=== PATIENT | female | born 1940 | race Caucasian/White ===

== ENCOUNTER 2016-08-12 15:15 | Inpatient (IN) | payer MEDICARE ==
[~2016-08-12] VITALS: Ht 154.9 cm; Wt 54.7 kg
[~2016-08-12 15:15] MED LIST: AMIO0.1T PO; ASPI81TA85 PO; CALC-196 PO; DULC100C PO; HYDR200T3 PO; IRON28TA PO; LUTE6CAP2 PO; METO25TAB PO; MULT1TAB8 PO; PYRI100T2 PO; VITA400T15 PO; VITA500C24 PO; ZOFR8TAB PO
[2016-08-12] MEDS ORDERED: XARE15TA (15:27)
[2016-08-12] MEDS ORDERED: DULO1CAP2 (15:27)
[2016-08-12] MEDS ORDERED: REST0.05 (15:27)
[2016-08-12] MEDS ORDERED: LEVO50TA5 (15:27)
[2016-08-12] MEDS ORDERED: ALIG4CAP (15:27)
[2016-08-12] MEDS ORDERED: GABA-279 (15:27)
[2016-08-12 16:53] LABS: BASO % 0.1 % (0.0-1.0); EOS % 0.2 % (0.0-3.0); LARGE UNSTAINED CELL # 0.2 K/mm3 (0.0-0.4); LARGE UNSTAINED CELL % 1.8 % (0.0-4.0); LYMPH # 0.4 K/mm3 (1.5-4.5); LYMPH % 3.3 % (24.0-44.0); MEAN CORPUSCULAR HEMOGLOBIN 29.6 pg (27.0-33.0); MEAN CORPUSCULAR HGB CONC 29.2 g/dl (32.0-36.5); MEAN CORPUSCULAR VOLUME 101.3 fl (80.0-96.0); MONO # 0.5 K/mm3 (0.0-0.8); MONO % 4.9 % (0.0-5.0); NEUTROPHILS # 9.9 K/mm3 (1.8-7.7); NEUTROPHILS % 89.8 % (36.0-66.0); PLATELET COUNT, AUTOMATED 238 k/mm3 (150-450); RED CELL DISTRIBUTION WIDTH 20.4 % (11.5-14.5)
[2016-08-12] MEDS: NS 1,000 ML IV SCH (16:56)
[2016-08-12 16:59] LABS: ALBUMIN/GLOBULIN RATIO 0.56 (1.00-1.93); ALKALINE PHOSPHATASE 333 U/L (45-117); ALT/SGPT 60 U/L (12-78); ANION GAP 7 MEQ/L (8-16); AST/SGOT 65 U/L (15-37); BILIRUBIN,DIRECT 1.8 MG/DL (0.0-0.2); BILIRUBIN,TOTAL 2.1 MG/DL (0.2-1.0); BLOOD UREA NITROGEN 21 MG/DL (7-18); CALCIUM LEVEL 7.4 MG/DL (8.8-10.2); CARBON DIOXIDE LEVEL 23 MEQ/L (21-32); CHLORIDE LEVEL 108 MEQ/L (98-107); CREATININE FOR GFR 0.85 MG/DL (0.55-1.02); GLOMERULAR FILTRATION RATE > 60.0 (>39); GLUCOSE, FASTING 127 MG/DL (83-110); POTASSIUM SERUM 3.5 MEQ/L (3.5-5.1); SODIUM LEVEL 138 MEQ/L (136-145); TOTAL PROTEIN 5.6 GM/DL (6.4-8.2)
--- NOTE | 2016-08-12 18:21 | REP ---
CHEST, TWO VIEWS: REASON: Abdominal pain. COMPARISON: 01/19/2015 The technique utilized in obtaining the radiograph has magnified the cardiac silhouette and accentuated the interstitial markings. Basilar opacities seen previously have resolved. Dural chamber bipolar pace maker device is stable. Central venous catheter tip in the superior vena cava. No abnormal patchy parenchymal opacities or pleural effusions have developed. There is no change in the osseous structures. IMPRESSION: Chronic changes as described above without evidence of acute cardiopulmonary disease. It should be stated that the lateral view shows a slight haziness in the posterior sulcus which may be artifactual or potentially represent a small pleural effusion. The exam is markedly limited. Signed by Philip Ortiz DO 08/12/2016 06:25 P
--- NOTE | 2016-08-12 18:29 | REP ---
CT ABDOMEN: REASON FOR EXAM: Abdominal cramping with bloating. COMPARISON: 03/15/2015 There is a moderate sized possibly loculated left pleural effusion. There is a smaller possibly partially loculated right pleural effusion. There are chronic fibrotic changes seen in the lung bases. Certainly, concomitant basilar pneumonia/atelectasis can not be ruled out. There is ascites which is moderate to large. There is a new low density lesion in the anterior segment of the right lobe of the liver which measures 1.7 cm. This can not be further assessed without intravenous contrast. The patient is status-post cholecystectomy. A limited evaluation of the pancreas shows no significant change from the prior exam. The limited evaluation of the adrenal glands again show low density adrenal gland thickening status quo. Limited evaluation of the kidneys show a single nonobstructing left nephrolith status quo and there is evidence of a right extrarenal pelvis status quo. The bowel loops are seen floating within the ascitic fluid. There appear to be multiple gas filled mildly dilated small bowel loops in the abdomen. There is calcific atherosclerotic change in the abdominal aorta status quo. The spleen is unchanged. There is a large amount of ascitic fluid in the pelvis. There are pelvic calcifications status quo seen in the left adnexa. There is a difficult to evaluate potential 5.2 x 3.4 x 4.6 cm sized cystic appearing mass lesion. This represents a change from the prior exam. The pelvic bowel loops appear to be within normal limits. The osseous structures show chronic bony demineralization and degenerative changes. There is a new area of abnormal increased density in the first sacral segment extending into the left sacral alar suspicious for blastic metastatic disease. This blastic appearing lesion has increased in sized from the prior exam. IMPRESSION:1. Abnormal lung field findings as described above. 2. Moderate to large amount of ascites. 3. New low density hepatic lesion as described above possibly representing a metastatic deposit. 4. Possible cystic mass in the left adnexa versus a loop of bowel. I note on the patient's history sheet that she has had hysterectomy, however, I am uncertain if there has been ovarian preservation. This finding needs to be correlated clinically and followed up to ensure resolution. 5. There appear to be blastic skeletal lesions as described above which need clinical correlation and followup. 6. Other findings as described above. Signed by Philip Ortiz DO 08/12/2016 06:33 P
--- NOTE | 2016-08-12 18:30 | REP ---
DUPLEX LOWER EXTREMITIES: REASON: Bilateral lower extremity pain and swelling. TECHNIQUE: Multiple ultrasonographic images of the deep venous structures of the bilateral thighs were obtained from the common femoral vein to the popliteal vein along with Doppler interrogation and color flow Doppler images. FINDINGS: There is no abnormal echogenic material seen within any of the visualized deep venous structures that would suggest acute thrombosis. Coaptation is unremarkable throughout. Doppler interrogation shows an expected response to respiratory variability and augmentation. The color flow images show what appears to be a normal vascular pattern throughout. IMPRESSION: There is no ultrasonographic evidence of deep venous thrombosis involving any of the visualized deep venous structures of the bilateral thighs, as described above. Signed by Philip Ortiz DO 08/12/2016 06:33 P
[2016-08-12 20:22] LABS: INR 1.5
[2016-08-12] MEDS ORDERED: ALIG4CAP PO (20:24)
[2016-08-12] MEDS ORDERED: AMIO0.1T PO (20:24)
[2016-08-12] MEDS ORDERED: COLA100C3 PO (20:28)
[2016-08-12] MEDS ORDERED: VITA50003 PO (20:28)
[2016-08-12] MEDS ORDERED: VITA500T88 PO (20:28)
[2016-08-12] MEDS ORDERED: CALC-196 PO (20:28)
[2016-08-12] MEDS ORDERED: FUROSEMIDE 40 MG/4 ML VIAL (J1940) IV ONE (20:30)
[2016-08-12] MEDS ORDERED: HYDR200T3 PO (20:36)
[2016-08-12] MEDS ORDERED: METO-346 PO (20:36)
[2016-08-12] MEDS ORDERED: IRON28TA PO (20:36)
[2016-08-12] MEDS ORDERED: LUTE6TAB2 PO (20:36)
[2016-08-12] MEDS ORDERED: VITATAB11 PO (20:36)
[2016-08-12] MEDS ORDERED: XARE15TA PO (20:36)
[2016-08-12] MEDS ORDERED: TYLE500T78 PO (20:36)
[2016-08-12] MEDS ORDERED: VITMTA PO (20:36)
[2016-08-12] MEDS ORDERED: ZOFR8TAB PO (20:36)
[2016-08-12] MEDS ORDERED: REST0.05 OU (20:36)
[2016-08-12] MEDS ORDERED: ARTI99.0 OU (20:36)
[2016-08-12] MEDS ORDERED: LEVO50TA45 PO (20:36)
[2016-08-12] MEDS ORDERED: POLYVINYL ALCOHOL OPHTH SOLN 15 ML(LIQUITEARS) OU PRN (20:45)
[2016-08-12 20:57] LABS: REASON FOR REVIEW ANEMIA / RBC MORPH
[2016-08-12 21:13] LABS: FERRITIN 238 NG/ML (8-252); PERCENT SATURATION 12.7 % (13.2-37.4); TOTAL IRON BINDING CAPACITY 166 UG/DL (250-450)
[2016-08-12 21:16] LABS: DIFF SLIDE NUMBER 289; RETIC HEMOGLOBIN CONTENT CHr 30.8 PG (24-36); RETICULOCYTE ABSOLUTE ADVIA212 59 x10(9)/L (17-77)
[2016-08-12 21:20] LABS: FOLATE > 24.0 NG/ML; VITAMIN B12 LEVEL 568 PG/ML
[2016-08-12 22:00] VITALS: BP 151/71
[2016-08-13] VITALS (9 sets, daily range): BP systolic 127–159; BP diastolic 61–92
[2016-08-13] MEDS: MULTIVITAMINS/MINERALS THERAP 1 TAB PO SCH ×2 (00:27→20:55)
[2016-08-13] MEDS: METOPROLOL TART 12.5 MG PER 1/2 TAB PO SCH ×3 (00:28→20:56)
[2016-08-13] MEDS: VITAMIN B COMPLEX/VIT C CAP PO SCH ×2 (00:28→20:55)
[2016-08-13] MEDS: HYDROXYCHLOROQUINE 200 MG TAB PO SCH ×3 (00:31→20:55)
[2016-08-13] MEDS: NS 1,000 ML IV SCH ×3 (00:32→09:09)
[2016-08-13 04:09] LABS: MEAN CORPUSCULAR HEMOGLOBIN 30.5 pg (27.0-33.0); MEAN CORPUSCULAR HGB CONC 32.5 g/dl (32.0-36.5); RED CELL DISTRIBUTION WIDTH 19.4 % (11.5-14.5)
[2016-08-13 04:14] LABS: MEAN CORPUSCULAR VOLUME 96.3 fl (80.0-96.0)
[2016-08-13 04:33] LABS: ALBUMIN/GLOBULIN RATIO 0.57 (1.00-1.93); ALKALINE PHOSPHATASE 335 U/L (45-117); ALT/SGPT 55 U/L (12-78); ANION GAP 8 MEQ/L (8-16); AST/SGOT 60 U/L (15-37); BLOOD UREA NITROGEN 22 MG/DL (7-18); CARBON DIOXIDE LEVEL 23 MEQ/L (21-32); CHLORIDE LEVEL 108 MEQ/L (98-107); CREATININE FOR GFR 0.82 MG/DL (0.55-1.02); GLOMERULAR FILTRATION RATE > 60.0 (>39); GLUCOSE, FASTING 101 MG/DL (83-110); POTASSIUM SERUM 3.4 MEQ/L (3.5-5.1); SODIUM LEVEL 139 MEQ/L (136-145); TOTAL PROTEIN 5.5 GM/DL (6.4-8.2)
[2016-08-13] MEDS: LEVOTHYROXINE 0.05 MG TAB (50 MCG) PO SCH (05:07)
--- NOTE | 2016-08-13 06:40 | HPE ---
DATE OF ADMISSION: 08/12/2016 PRIMARY CARE PROVIDER: Dr. Genesis Prince ONCOLOGIST: Dr. Capps in [place]. CHIEF COMPLAINT: Worsening weakness. HISTORY OF PRESENT ILLNESS: Patient is a 76-year-old female with a past medical history significant for pancreatic cancer status post Whipple undergoing chemotherapy, hypertension, symptomatic bradycardia status post pacemaker, rheumatoid arthritis, presented to [facility] 08/12/2016 for worsening weakness. Patient stated for the past few weeks patient had worsening fatigue, muscle weakness to the extent that she cannot get out of the bed by herself. Patient also noted to have worsening abdominal pain and shortness of breath since 08/10/2016. Patient denies any associated symptoms. Patient does have a history pancreatic cancer diagnosed in 2014. Patient has received a Whipple procedure in the same year and patient is being followed with oncologist since 2014. Patient's chemotherapy has been adjusted multiple times due to the adverse effect. Previously, patient may have skin changes or neurological changes from chemotherapy. Approximately 8 days ago, patient started the first dose of her new chemotherapy. Patient was informed that her stool will turn all black with this new type of chemotherapy. Patient did notice black stool since the initiation of the chemo and patient has been taking iron supplements. Patient denies any bright red blood per rectum. Denies any blood in the urine or coughing up blood. ALLERGIES: 1. CODEINE. 2. PENICILLIN. PAST MEDICAL HISTORY: 1. Pancreatic cancer diagnosed in 2014, status post Whipple procedure, has received chemotherapy since 2014. 2. Hypertension. 3. Rheumatoid arthritis. 4. Symptomatic bradycardia, status post pacemaker placement. PAST SURGICAL HISTORY: 1. Whipple procedure in 2014. 2. Pacemaker insertion. 3. Hysterectomy. 4. Cholecystectomy. 5. Infusaport placement. SOCIAL HISTORY: Denies smoking. Denies alcohol use. Denies recreational drug use. Patient does not have confirmed wish for her code status. At this moment, she requires extra time discussing the DNR/DNI issue with the family members. REVIEW OF SYSTEMS: GENERAL: No fever. No chills. Increased fatigue, muscle weakness. HEENT: No vision changes. No auditory changes. CARDIOVASCULAR: No chest pain. No palpitations. RESPIRATORY: Increased shortness of breath. No wheeze. No cough. No sputum production. GASTROINTESTINAL (GI): Complained about worsening abdominal pain and abdominal distention. No nausea. No vomiting. No diarrhea. Patient did notice the stool is black since 8 days ago after the chemotherapy. NEUROLOGICAL: No numbness or tingling. MUSCULOSKELETAL: History of rheumatoid arthritis. Does not complain of muscle pain or joint pain. OBJECTIVE: VITAL SIGNS: Temperature is 98.5, pulse is 86, respirations 18, blood pressure is 122/66, pulse oximetry 98% on room air. GENERAL: Fatigued. Pale. No sign of acute distress. Alert and oriented times three. HEENT: Normocephalic, atraumatic. Extraocular motors grossly intact. CARDIOVASCULAR: Positive systolic murmur, positive S1, S2, regular rate. LUNGS: Clear to auscultation bilaterally. No wheezes or rhonchi. ABDOMEN: Abdominal distention but is soft. Can palpate some fluctuance. No rebound. No guarding. EXTREMITIES: No edema. No cyanosis. LABORATORY DATA: WBC is 11, hemoglobin 4.3, hematocrit 14.6, platelet count is 238. Sodium 138, potassium 3.5, chloride is 108, carbon dioxide 23, BUN 21, creatinine 0.85, GFR greater than 60, fasting glucose 127, calcium 7.4, total bilirubin 2.1 , direct bilirubin is 1.8, AST 65, ALT is 60, alkaline phosphatase 633, total CK is 26, troponin I is 0.08, BNP is 144, total protein is 5.6, albumin 2, lipase 66, TSH is 3.26. PTT is 18.2, INR 1.5. ASSESSMENT AND PLAN: 1. Severe symptomatic anemia. Patient admitted to the progressive care unit (PCU) under inpatient status. Follow hemoccult, two packed red blood cell is ordered for the patient and patient's blood transfusion consent obtained. We will follow with patient's hemoglobin and hematocrit every 6 hours. Patient does have a sign of fluid overload and we will give the patient a one time dose of intravenous (IV) Lasix and will follow with anemia workup. 2. Pancreatic cancer status post Whipple in 2014. Patient has been receiving chemotherapy since 2014. Patient is followed by the oncologist, Dr. Capps in [place]. Patient's chemo regimen has been changed continuously due to adverse effect. Patient just started a new regimen on 08/04/2016. CT abdomen and pelvis were performed in the emergency room. Patient was found to have a suspicious lesion of the right lobe of the liver measuring around 1.7 cm, and there is some blastic skeletal lesions. Those images is suspicious for metastatic spread. Finding was discussed with the patient. 3. Abdominal pain secondary to moderate two large ascites. Patient may benefit of imaging guided paracentesis tomorrow. 4. Bilateral pleural effusion. Currently, patient's breathing is able to maintain in the satisfactory respiratory range in room air. Will start diuresis. If patient has worsening of breathing or worsening of the pleural fluid, patient may benefit from the procedure, but at this moment I will start a trial of Lasix diuresis. 5. History of symptomatic bradycardia status post pacemaker. 6. History of rheumatoid arthritis. 7. Hypertension. Currently, blood pressure in the normal range. Continue to monitor. 8. Systolic congestive heart failure. Patient had an echocardiogram done in January 2017. At the time, patient had a large circumferential pericardial effusion and also noted to have mildly reduced left ventricular systolic function. Patient will be on a trial of Lasix diuresis times one, and will continue to follow. 9. Pancreatitis due to patient's active malignancy and also the severe ascites. 10. Bilirubinemia. Patient had an elevated total bilirubin and direct bilirubin. Cannot rule out due to the moderately severe ascites. 11. History of blood clot. Patient was on Xarelto due to severe asymptomatic anemia and try to rule out any acute bleeding. Xarelto will be on hold. Patient will be given JEREMIAH and sequential compression device. 11. History of prior systemic atrial fibrillation. Patient's anticoagulation will be on hold due to current severe anemia. Will continue patient amiodarone. Patient will be monitored on telemetry. 12. Deep venous thrombosis (DVT) prophylaxis. Patient will be on thromboembolism deterrents (TEDs) and sequential compression device. MTDD
[2016-08-13] MEDS ORDERED: DOCUSATE SODIUM 100 MG CAP PO SCH (09:00)
[2016-08-13] MEDS: SENOKOT S TAB PO SCH ×2 (13:09→20:55)
[2016-08-13] MEDS: MIRALAX *UNIT DOSE* 17GM PACKET PO SCH (13:09)
[2016-08-13] MEDS ORDERED: SENOKOT S TAB PO SCH ×2 (21:00)
[2016-08-14] MEDS ORDERED: ONDANSETRON 4MG/2ML VIAL (J2405) IV ONE (05:30)
[2016-08-14 05:47] LABS: MEAN CORPUSCULAR HEMOGLOBIN 31.2 pg (27.0-33.0); MEAN CORPUSCULAR HGB CONC 32.5 g/dl (32.0-36.5); MEAN CORPUSCULAR VOLUME 96.2 fl (80.0-96.0); RED CELL DISTRIBUTION WIDTH 19.3 % (11.5-14.5)
[2016-08-14 05:53] LABS: INR 1.21
[2016-08-14 06:00] VITALS: BP 132/68
[2016-08-14 06:09] LABS: ALBUMIN/GLOBULIN RATIO 0.59 (1.00-1.93); ALKALINE PHOSPHATASE 312 U/L (45-117); ALT/SGPT 51 U/L (12-78); ANION GAP 9 MEQ/L (8-16); AST/SGOT 60 U/L (15-37); BILIRUBIN,TOTAL 4.2 MG/DL (0.2-1.0); BLOOD UREA NITROGEN 20 MG/DL (7-18); CALCIUM LEVEL 7.1 MG/DL (8.8-10.2); CARBON DIOXIDE LEVEL 22 MEQ/L (21-32); CHLORIDE LEVEL 107 MEQ/L (98-107); CREATININE FOR GFR 0.78 MG/DL (0.55-1.02); GLOMERULAR FILTRATION RATE > 60.0 (>39); GLUCOSE, FASTING 122 MG/DL (83-110); POTASSIUM SERUM 3.2 MEQ/L (3.5-5.1); SODIUM LEVEL 138 MEQ/L (136-145); TOTAL PROTEIN 5.4 GM/DL (6.4-8.2)
[2016-08-14] MEDS: LEVOTHYROXINE 0.05 MG TAB (50 MCG) PO SCH (06:14)
--- NOTE | 2016-08-14 08:28 | ECGEPIP ---
Stationary ECG Study [facility] - ED Test Date: 2016-08-12 Pat Name: CAMRYN VIZCARRA Department: Room: - Gender: F Traffic Analyst: JOHNY : 1940 Requested By: SUSANA Nielsen Order Number: [id number] Reading MD: Crista Torres Measurements Intervals [place] Rate: 80 P: 64 MA: 153 QRS: -28 QRSD: 153 T: 115 QT: 407 QTc: 472 Interpretive Statements SINUS RHYTHM WITH SINUS ARRHYTHMIA LEFT BUNDLE BRANCH BLOCK PRIOR 01/19/15 PACED Electronically Signed On 08-14-2016 8:28:05 EDT by Crista Torres
[2016-08-14] MEDS: MIRALAX *UNIT DOSE* 17GM PACKET PO SCH (08:56)
[2016-08-14] MEDS: AMIODARONE 100MG TABLET (PACERONE) PO SCH (08:56)
[2016-08-14] MEDS: METOPROLOL TART 12.5 MG PER 1/2 TAB PO SCH ×2 (08:56→20:08)
[2016-08-14] MEDS: HYDROXYCHLOROQUINE 200 MG TAB PO SCH ×2 (08:56→20:08)
[2016-08-14] MEDS: SENOKOT S TAB PO SCH ×2 (08:56→20:08)
[2016-08-14] MEDS: ENOXAPARIN 40 MG/0.4 ML SYRINGE (J1650) SC SCH (08:57)
[2016-08-14] MEDS: SODIUM CHLORIDE 0.9% INJ 10 ML SYR IV SCH (08:58)
[2016-08-14 12:54] LABS: RBC PERITONEAL FLUID < 10 (<10mm3 cells/uL); TNC PERITONEAL FLUID 117 cells/uL (0-20)
[2016-08-14 12:55] LABS: BF DIFF IF INDICATED? YES (NO); PERITONEAL FL COLOR YELLOW (COLORLESS)
[2016-08-14 14:00] VITALS: BP 125/58
[2016-08-14 14:39] LABS: CC BF DIFF EXAM CYTOCENTRIFUGE
--- NOTE | 2016-08-14 15:54 | IPNPDOC ---
Subjective Date Seen The patient was seen on 08/13/16. Subjective Chief Complaint/HPI The patient is a 76-year-old female admitted with a reason for visit of Ascites; Severe Anemia. Events since last encounter Has abd distension, sense of fullness- no pain, tolerating diet with little appetite, no bm Constitutional: Denies: Chills, Fever Pulmonary: Denies: Dyspnea, Cough Cardiovascular: Denies: Chest Pain Gastrointestinal: Denies: Nausea, Vomiting, Abdominal Pain Objective Physical Examination General Exam: Positive: Alert, Cooperative, No Acute Distress ENT Exam: Positive: Mucous membr. moist/pink Chest Exam: Positive: Clear to auscultation, Diminished, Negative: Rales, Rhonchi, Wheezing Heart Exam: Positive: Rate Normal, Negative: Normal S1, Normal S2 Abdomen Exam: Positive: Normal bowel sounds, Soft, Negative: Tenderness Assessment /Plan Problems (1) Severe anemia Problem Text: s/p transfusion baseline HCT apparently around 7 Seems to be anemia of chronic disease- worse than normal, on procrit at baseline repeat h/h in am (2) Pancreatic cancer Problem Specific Plan: Consult Specialist Problem Text: Has ascites and pancreatitic cancer with metastatic disease I called Dr. Capps this afternoon to receive guidance and insight into her plan of care- awaiting return phone call as he was seeing patients when I called I doubt need for drainage of ascites based on benign physical exam Patient may benefit from procrit during her stay Will be seen by physical therapy- (3) Malignant ascites (4) Hypertension (5) Hypokalemia Problem Text: replete as needed (6) Ascites Status: Acute (7) Pancreatitis Status: Acute Problem Text: elevated lipase at presentation- resolved Plan/VTE VTE Prophylaxis Ordered?: Yes VS, I&O, 24H, Fishbone Vital Signs/I&O Vital Signs Date Time Temp Pulse Resp B/P (MAP) Pulse Ox O2 Delivery O2 Flow Rate FiO2 08/13/16 14:35 Room Air 08/13/16 14:32 98.2 78 17 134/65 (88) 96 I&O- Last 24 Hours up to 6 AM 08/13/16 06:00 Intake Total 1200 ml Output Total 1175 ml Balance 25 ml Laboratory Data 24H LABS Laboratory Tests 2 08/12/16 20:50: Differential Slide Review Report, Differential Pathologist's Review ANEMIA / RBC MORPH, Peripheral Blood Smear Path Consult PERIPHERAL SMEAR 08/13/16 03:50: Anion Gap 8, Glomerular Filtration Rate > 60.0, Blood Urea Nitrogen 22H, Creatinine 0.82, Sodium Level 139, Potassium Level 3.4L, Chloride Level 108H, Carbon Dioxide Level 23, Calcium Level 7.0L, Aspartate Amino Transf (AST/SGOT) 60H, Alanine Aminotransferase (ALT/SGPT) 55, Alkaline Phosphatase 335H, Total Bilirubin 4.0#H, Total Protein 5.5L, Albumin 2.0L, Albumin/Globulin Ratio 0.57L , Lipase 322 CBC/BMP Laboratory Tests 08/13/16 03:50 Red Blood Count 2.90 L, Mean Corpuscular Volume 96.3 #H, Mean Corpuscular Hemoglobin 30.5, Mean Corpuscular Hemoglobin Concent 32.5, Red Cell Distribution Width 19.4 H, Calcium Level 7.0 L, Aspartate Amino Transf (AST/SGOT ) 60 H, Alanine Aminotransferase (ALT/SGPT) 55, Alkaline Phosphatase 335 H, Total Bilirubin 4.0 #H, Total Protein 5.5 L, Albumin 2.0 L ELIOT WOODSON MD August 13, 2016 20:34
--- NOTE | 2016-08-14 15:58 | IPNPDOC ---
Subjective Date Seen The patient was seen on 08/14/16. Subjective Chief Complaint/HPI The patient is a 76-year-old female admitted with a reason for visit of Ascites; Severe Anemia. Events since last encounter has some more abdominal discomfort today, sense of fullness- no pain, no fever, no chills Pulmonary: Denies: Dyspnea, Cough Cardiovascular: Denies: Chest Pain Gastrointestinal: Reports: Abdominal Pain (fullness), Denies: Nausea, Vomiting Objective Physical Examination General Exam: Positive: Alert, Cooperative, No Acute Distress Eye Exam: Negative: Sclera icteric ENT Exam: Positive: Mucous membr. moist/pink Chest Exam: Positive: Clear to auscultation, Diminished, Negative: Rales, Rhonchi, Wheezing Heart Exam: Positive: Rate Normal, Negative: Normal S1, Normal S2 Abdomen Exam: Positive: Normal bowel sounds, Soft, Negative: Tenderness Assessment /Plan Problems (1) Severe anemia Problem Text: s/p transfusion hgb stable- no role for screening colonoscopy baseline HCT apparently around 7 Seems to be anemia of chronic disease- worse than normal, on procrit at baseline repeat h/h in am (2) Pancreatic cancer Problem Specific Plan: Consult Specialist Problem Text: Has ascites and pancreatitic cancer with metastatic disease I called Dr. Capps this afternoon to receive guidance and insight into her plan of care- suggests paracentesis prn for comfort, on quaternary chemotherapy Will pursue drainage of ascites based on day of week and symptoms Patient may benefit from procrit during her stay- I verified normal dose with oncology Will be seen by physical therapy- (3) Malignant ascites (4) Hypertension (5) Hypokalemia Problem Text: replete as needed (6) Ascites Status: Acute (7) Pancreatitis Status: Acute Problem Text: elevated lipase at presentation- resolved Plan/VTE VTE Prophylaxis Ordered?: Yes VS, I&O, 24H, Fishbone Vital Signs/I&O Vital Signs Date Time Temp Pulse Resp B/P (MAP) Pulse Ox O2 Delivery O2 Flow Rate FiO2 08/14/16 14:00 99.1 93 18 125/58 (80) 97 Room Air I&O- Last 24 Hours up to 6 AM 08/14/16 05:59 Intake Total 1740 ml Output Total 1200 ml Balance 540 ml Laboratory Data 24H LABS Laboratory Tests 2 08/14/16 05:26: Prothrombin Time 15.4H, Prothromb Time International Ratio 1.21, Anion Gap 9, Glomerular Filtration Rate > 60.0, Blood Urea Nitrogen 20H, Creatinine 0.78, Sodium Level 138, Potassium Level 3.2L, Chloride Level 107, Carbon Dioxide Level 22, Calcium Level 7.1L, Aspartate Amino Transf (AST/SGOT) 60H, Alanine Aminotransferase (ALT/SGPT) 51, Alkaline Phosphatase 312H, Total Bilirubin 4.2H , Total Protein 5.4L, Albumin 2.0L, Albumin/Globulin Ratio 0.59L, Lipase 267 08/14/16 12:05: Body Fluid Specific [place] 1.020, Body Fluid Neutrophils 48, Body Fluid Lymphocytes 22, Body Fluid Monocytes/Macrophages 30, Body Fluid Glucose Source PERITONEAL, Body Fluid Glucose 115, Body Fluid Protein Source PERITONEAL, Body Fluid Total Protein 3.0, Body Fluid Albumin Source PERITONEAL, Body Fluid Albumin 1.4, Peritoneal Fluid Source PERITONEAL, Peritoneal Fluid Color YELLOW, Peritoneal Fluid Appearance CLEAR, Peritoneal Fluid RBC (Auto) < 10, Peritoneal Fld Tot Nucleated Cells 117H CBC/BMP Laboratory Tests 08/14/16 05:26 Red Blood Count 2.66 L, Mean Corpuscular Volume 96.2 H, Mean Corpuscular Hemoglobin 31.2, Mean Corpuscular Hemoglobin Concent 32.5, Red Cell Distribution Width 19.3 H, Calcium Level 7.1 L, Aspartate Amino Transf (AST/SGOT ) 60 H, Alanine Aminotransferase (ALT/SGPT) 51, Alkaline Phosphatase 312 H, Total Bilirubin 4.2 H, Total Protein 5.4 L, Albumin 2.0 L Microbiology Microbiology 08/14/16 Acid Fast Stain, Received Pending 08/14/16 Mycobacterial Culture, Received Pending 08/14/16 Fungal Smear, Received Pending 08/14/16 Fungal Culture, Received Pending 08/14/16 Gram Stain - Final, Resulted 08/14/16 Body Fluid Culture, Resulted Pending 08/14/16 Anaerobic Culture, Resulted Pending ELIOT WOODSON MD August 14, 2016 15:58
--- NOTE | 2016-08-14 17:05 | REP ---
ULTRASOUND GUIDED PARACENTESIS: The procedure was performed under the direct supervision of Dr. London. The risks and benefits of the procedure were explained to the patient and informed consent was obtained. The largest pocket of fluid was localized in the left flank using ultrasound guidance. The skin was prepped and draped in a sterile fashion. 1% Lidocaine was used as a local anesthetic. An 8-Kinyarwanda [id number]-[id number]-wbum catheter was inserted using trocar technique. 2800 mL of aurora colored fluid was withdrawn with a sample sent to the lab for analysis. The patient tolerated the procedure well and there were no immediate complications. Reviewed by SERVANDO Cueto 08/17/2016 10:52 AEdited and Signed by Stu London MD 08/17/2016 12:23 P
[2016-08-14] MEDS: MULTIVITAMINS/MINERALS THERAP 1 TAB PO SCH (20:08)
[2016-08-14] MEDS: VITAMIN B COMPLEX/VIT C CAP PO SCH (20:08)
[2016-08-14] MEDS: MOM 30ML SUSPENSION UDC PO PRN (20:09)
[2016-08-14 22:00] VITALS: BP 121/60
[2016-08-15] MEDS: SODIUM CHLORIDE 0.9% INJ 10 ML SYR IV PRN (05:36)
[2016-08-15] MEDS: LEVOTHYROXINE 0.05 MG TAB (50 MCG) PO SCH (05:36)
[2016-08-15 06:00] VITALS: BP 121/58
[2016-08-15 06:11] LABS: INR 1.3
[2016-08-15 06:16] LABS: MEAN CORPUSCULAR HEMOGLOBIN 30.9 pg (27.0-33.0); MEAN CORPUSCULAR HGB CONC 31.9 g/dl (32.0-36.5); MEAN CORPUSCULAR VOLUME 96.6 fl (80.0-96.0); RED CELL DISTRIBUTION WIDTH 19.8 % (11.5-14.5); WHITE BLOOD COUNT 12.7 K/mm3 (4.0-10.0)
[2016-08-15 07:17] LABS: ALBUMIN 1.6 GM/DL (3.2-5.2); ALBUMIN/GLOBULIN RATIO 0.52 (1.00-1.93); ALKALINE PHOSPHATASE 249 U/L (45-117); ALT/SGPT 45 U/L (12-78); ANION GAP 11 MEQ/L (8-16); AST/SGOT 47 U/L (15-37); BILIRUBIN,TOTAL 3.9 MG/DL (0.2-1.0); BLOOD UREA NITROGEN 19 MG/DL (7-18); CALCIUM LEVEL 6.7 MG/DL (8.8-10.2); CARBON DIOXIDE LEVEL 22 MEQ/L (21-32); CHLORIDE LEVEL 106 MEQ/L (98-107); CREATININE FOR GFR 0.63 MG/DL (0.55-1.02); GLOMERULAR FILTRATION RATE > 60.0 (>39); GLUCOSE, FASTING 105 MG/DL (83-110); POTASSIUM SERUM 3.1 MEQ/L (3.5-5.1); SODIUM LEVEL 139 MEQ/L (136-145); TOTAL PROTEIN 4.7 GM/DL (6.4-8.2)
[2016-08-15] MEDS: SENOKOT S TAB PO SCH ×2 (09:08→20:16)
[2016-08-15] MEDS: HYDROXYCHLOROQUINE 200 MG TAB PO SCH ×2 (09:08→20:16)
[2016-08-15] MEDS: METOPROLOL TART 12.5 MG PER 1/2 TAB PO SCH ×2 (09:08→20:16)
[2016-08-15] MEDS: MIRALAX *UNIT DOSE* 17GM PACKET PO SCH (09:08)
[2016-08-15] MEDS: ENOXAPARIN 40 MG/0.4 ML SYRINGE (J1650) SC SCH (09:11)
[2016-08-15] MEDS: SODIUM CHLORIDE 0.9% INJ 10 ML SYR IV SCH (09:12)
[2016-08-15] MEDS ORDERED: SIMETHICONE 80 MG CHEW TAB PO PRN (10:30)
[2016-08-15] MEDS ORDERED: DARBEPOETIN 100 MCG/0.5 ML *NON-DIALYSIS* SYRINGE (J0881) SC ONE (11:00)
[2016-08-15 14:00] VITALS: BP 121/55
--- NOTE | 2016-08-15 15:51 | IPNPDOC ---
Subjective Date Seen The patient was seen on 08/15/16. Subjective Chief Complaint/HPI The patient is a 76-year-old female admitted with a reason for visit of Ascites; Severe Anemia. Events since last encounter Patient has abdominal discomfort, abd is smaller, but sensation of fullness, has been burping quite a bit, feels weak and tired Constitutional: Denies: Chills, Fever Pulmonary: Denies: Dyspnea, Cough Cardiovascular: Denies: Chest Pain Gastrointestinal: Reports: Abdominal Pain (gassy, constipated, uncomfortable), Denies: Nausea, Vomiting Objective Physical Examination General Exam: Positive: Alert, Cooperative, No Acute Distress Eye Exam: Negative: Sclera icteric ENT Exam: Positive: Mucous membr. moist/pink Chest Exam: Positive: Clear to auscultation, Diminished, Negative: Rales, Rhonchi, Wheezing Heart Exam: Positive: Rate Normal, Negative: Normal S1, Normal S2 Abdomen Exam: Positive: Normal bowel sounds, Soft, Negative: Tenderness Assessment /Plan Problems (1) Severe anemia Problem Text: s/p transfusion hgb trending downward- no role for screening colonoscopy baseline HCT apparently around 7 Seems to be anemia of chronic disease- worse than normal, on procrit at baseline - giving dose of aranesp today repeat h/h in am- may need another transfusion (2) Pancreatic cancer Problem Specific Plan: Consult Specialist Problem Text: Has ascites and pancreatitic cancer with metastatic disease I called Dr. Capps (08/13/16 and discussed with him 08/14/16) to receive guidance and insight into her plan of care- suggests paracentesis prn for comfort, on quaternary chemotherapy Drainage of ascites provided symptomatic relief- no evidence of sbp on fluid analysis Will be seen by physical therapy Patient feeling weak today- not appropriate for discharge Patient did not require albumin after paracentesis (3) Malignant ascites Status: Acute (4) Hypertension Status: Chronic (5) Hypokalemia Status: Acute Problem Text: replete today (6) Ascites Status: Acute (7) Pancreatitis Status: Acute Problem Text: elevated lipase at presentation- resolved Plan/VTE VTE Prophylaxis Ordered?: Yes VS, I&O, 24H, Fishbone Vital Signs/I&O Vital Signs Date Time Temp Pulse Resp B/P (MAP) Pulse Ox O2 Delivery O2 Flow Rate FiO2 08/15/16 14:00 98.0 78 18 121/55 (77) 98 Room Air I&O- Last 24 Hours up to 6 AM 08/15/16 05:59 Intake Total 660 ml Output Total 1225 ml Balance -565 ml Laboratory Data 24H LABS Laboratory Tests 2 08/15/16 05:42: Prothrombin Time 16.3H, Prothromb Time International Ratio 1.30, Anion Gap 11, Glomerular Filtration Rate > 60.0, Blood Urea Nitrogen 19H, Creatinine 0.63, Sodium Level 139, Potassium Level 3.1L, Chloride Level 106, Carbon Dioxide Level 22, Calcium Level 6.7L, Aspartate Amino Transf (AST/SGOT) 47H, Alanine Aminotransferase (ALT/SGPT) 45, Alkaline Phosphatase 249H, Total Bilirubin 3.9H , Total Protein 4.7L, Albumin 1.6L, Albumin/Globulin Ratio 0.52L, Lipase 193 CBC/BMP Laboratory Tests 08/15/16 05:42 Red Blood Count 2.25 L, Mean Corpuscular Volume 96.6 H, Mean Corpuscular Hemoglobin 30.9, Mean Corpuscular Hemoglobin Concent 31.9 L, Red Cell Distribution Width 19.8 H, Calcium Level 6.7 L, Aspartate Amino Transf (AST/SGOT ) 47 H, Alanine Aminotransferase (ALT/SGPT) 45, Alkaline Phosphatase 249 H, Total Bilirubin 3.9 H, Total Protein 4.7 L, Albumin 1.6 L Microbiology Microbiology 08/14/16 Acid Fast Stain, Received Pending 08/14/16 Mycobacterial Culture, Received Pending 08/14/16 Fungal Smear, Received Pending 08/14/16 Fungal Culture, Received Pending 08/14/16 Gram Stain - Final, Resulted 08/14/16 Body Fluid Culture, Resulted Pending 08/14/16 Anaerobic Culture, Resulted Pending ELIOT WOODSON MD August 15, 2016 15:51
[2016-08-15] MEDS ORDERED: POTASSIUM CHLORIDE 10 MEQ SR TABLET PO ONE (17:00)
[2016-08-15] MEDS: MOM 30ML SUSPENSION UDC PO PRN (17:26)
[2016-08-15] MEDS: VITAMIN B COMPLEX/VIT C CAP PO SCH (20:15)
[2016-08-15] MEDS: MULTIVITAMINS/MINERALS THERAP 1 TAB PO SCH (20:15)
[2016-08-15 22:00] VITALS: BP 118/57
[2016-08-16] MEDS: ONDANSETRON 4 MG TAB (S0181) PO PRN ×2 (00:13→09:43)
[2016-08-16 05:28] LABS: INR 1.23
[2016-08-16 05:33] LABS: MEAN CORPUSCULAR HEMOGLOBIN 30.7 pg (27.0-33.0); MEAN CORPUSCULAR HGB CONC 31.8 g/dl (32.0-36.5); MEAN CORPUSCULAR VOLUME 96.6 fl (80.0-96.0); RED CELL DISTRIBUTION WIDTH 20.6 % (11.5-14.5); WHITE BLOOD COUNT 12.2 K/mm3 (4.0-10.0)
[2016-08-16] MEDS: LEVOTHYROXINE 0.05 MG TAB (50 MCG) PO SCH (05:53)
[2016-08-16 05:55] LABS: ALBUMIN 1.5 GM/DL (3.2-5.2); ALBUMIN/GLOBULIN RATIO 0.42 (1.00-1.93); ALKALINE PHOSPHATASE 230 U/L (45-117); ALT/SGPT 39 U/L (12-78); ANION GAP 8 MEQ/L (8-16); AST/SGOT 42 U/L (15-37); BILIRUBIN,TOTAL 4.1 MG/DL (0.2-1.0); BLOOD UREA NITROGEN 19 MG/DL (7-18); CALCIUM LEVEL 7.1 MG/DL (8.8-10.2); CARBON DIOXIDE LEVEL 23 MEQ/L (21-32); CHLORIDE LEVEL 105 MEQ/L (98-107); CREATININE FOR GFR 0.73 MG/DL (0.55-1.02); GLOMERULAR FILTRATION RATE > 60.0 (>39); GLUCOSE, FASTING 107 MG/DL (83-110); POTASSIUM SERUM 3.8 MEQ/L (3.5-5.1); SODIUM LEVEL 136 MEQ/L (136-145); TOTAL PROTEIN 5.1 GM/DL (6.4-8.2)
[2016-08-16 06:00] VITALS: BP 133/59
[2016-08-16] MEDS: MIRALAX *UNIT DOSE* 17GM PACKET PO SCH (08:43)
[2016-08-16] MEDS: ENOXAPARIN 40 MG/0.4 ML SYRINGE (J1650) SC SCH (08:43)
[2016-08-16] MEDS: SENOKOT S TAB PO SCH ×2 (08:43→21:59)
[2016-08-16] MEDS: METOPROLOL TART 12.5 MG PER 1/2 TAB PO SCH ×2 (08:43→22:00)
[2016-08-16] MEDS: HYDROXYCHLOROQUINE 200 MG TAB PO SCH ×2 (08:43→21:59)
[2016-08-16] MEDS: SODIUM CHLORIDE 0.9% INJ 10 ML SYR IV SCH (08:44)
[2016-08-16 14:00] VITALS: BP 121/57
[2016-08-16] MEDS: PANTOPRAZOLE 40MG INJ (PROTONIX) (C9113) IV SCH ×2 (14:14→21:59)
--- NOTE | 2016-08-16 16:01 | IPNPDOC ---
Subjective Date Seen The patient was seen on 08/16/16. Subjective Chief Complaint/HPI The patient is a 76-year-old female admitted with a reason for visit of Ascites; Severe Anemia. Events since last encounter Has abd discomfort, fullness, some epigastric fullness, skin tenderness. has had nausea, went on to vomit Constitutional: Denies: Fever Pulmonary: Denies: Dyspnea, Cough Cardiovascular: Denies: Chest Pain Gastrointestinal: Reports: Nausea, Vomiting, Abdominal Pain Objective Physical Examination General Exam: Positive: Alert, Cooperative, No Acute Distress Eye Exam: Positive: Sclera icteric ENT Exam: Positive: Mucous membr. moist/pink Chest Exam: Positive: Clear to auscultation, Diminished, Negative: Rales, Rhonchi, Wheezing Heart Exam: Positive: Rate Normal, Negative: Normal S1, Normal S2 Abdomen Exam: Positive: Normal bowel sounds, Soft, Tenderness (tenderness at the superior aspect of midline surgical incision) Assessment /Plan Problems (1) Severe anemia Problem Text: s/p transfusion hgb trending downward- repeat transfusion today, described a melanotic stool from yesterday, start ppi, hold lovenox, mechanical dvt prophylaxis baseline HCT apparently around 7 Seems to be anemia of chronic disease and acute gi blood loss- given aranesp this stay repeat h/h in am- may need another transfusion (2) Pancreatic cancer Problem Specific Plan: Consult Specialist Problem Text: Has ascites and pancreatitic cancer with metastatic disease I called Dr. Capps (08/13/16 and discussed with him 08/14/16) to receive guidance and insight into her plan of care- suggests paracentesis prn for comfort, on quaternary chemotherapy Drainage of ascites provided temporary symptomatic relief- no evidence of sbp on fluid analysis Has abdominal discomfort today, may need repeat imaging, fluid seems to be reaccumulating on physical exam Had discussion with patient and daughter at bedside- discussed possibility of nearing end-of-life depending on clinical course. We discussed the possibility of hospice, and comfort measures. (3) Malignant ascites Status: Acute (4) Hypertension Status: Chronic (5) Hypokalemia Status: Acute Problem Text: repleted (6) Ascites Status: Acute (7) Pancreatitis Status: Acute Problem Text: elevated lipase at presentation- resolved Plan/VTE VTE Prophylaxis Ordered?: Yes VS, I&O, 24H, Fishbone Vital Signs/I&O Vital Signs Date Time Temp Pulse Resp B/P (MAP) Pulse Ox O2 Delivery O2 Flow Rate FiO2 08/16/16 14:00 99.3 86 17 121/57 (78) 98 Room Air I&O- Last 24 Hours up to 6 AM 08/16/16 06:00 Intake Total 1000 ml Output Total 820 ml Balance 180 ml Laboratory Data 24H LABS Laboratory Tests 2 08/16/16 05:08: Prothrombin Time 15.6H, Prothromb Time International Ratio 1.23, Anion Gap 8, Glomerular Filtration Rate > 60.0, Blood Urea Nitrogen 19H, Creatinine 0.73, Sodium Level 136, Potassium Level 3.8#, Chloride Level 105, Carbon Dioxide Level 23, Calcium Level 7.1L, Aspartate Amino Transf (AST/SGOT) 42H, Alanine Aminotransferase (ALT/SGPT) 39, Alkaline Phosphatase 230H, Total Bilirubin 4.1H , Total Protein 5.1L, Albumin 1.5L, Albumin/Globulin Ratio 0.42L, Lipase 449H CBC/BMP Laboratory Tests 08/16/16 05:08 Red Blood Count 2.02 L, Mean Corpuscular Volume 96.6 H, Mean Corpuscular Hemoglobin 30.7, Mean Corpuscular Hemoglobin Concent 31.8 L, Red Cell Distribution Width 20.6 H, Calcium Level 7.1 L, Aspartate Amino Transf (AST/SGOT ) 42 H, Alanine Aminotransferase (ALT/SGPT) 39, Alkaline Phosphatase 230 H, Total Bilirubin 4.1 H, Total Protein 5.1 L, Albumin 1.5 L Microbiology Microbiology 08/14/16 Acid Fast Stain, Received Pending 08/14/16 Mycobacterial Culture, Received Pending 08/14/16 Fungal Smear, Received Pending 08/14/16 Fungal Culture, Received Pending 08/14/16 Gram Stain - Final, Complete 08/14/16 Body Fluid Culture - Final, Complete 08/14/16 Anaerobic Culture - Final, Complete 08/15/16 Stool Occult Blood (RAINA) - Final, Complete ELIOT WOODSON MD August 16, 2016 16:01
[2016-08-16] MEDS ORDERED: PROMETHAZINE INJ 25 MG/ML VIAL (J2550) IV PRN (17:45)
[2016-08-16] MEDS ORDERED: GASTROGRAFIN SOLUTION 30ML (Q9963) PO ONE (18:30)
[2016-08-16] MEDS ORDERED: GASTROGRAFIN SOLUTION 30ML PO ONE (19:00)
[2016-08-16] MEDS ORDERED: ISOVUE-370 76% 100ML VIAL (Q9967) As Ordered ONE (19:36)
--- NOTE | 2016-08-16 21:00 | REPUSA ---
CT of the abdomen and pelvis with contrast Clinical statement: Pain. Technique: Multiple axial CT images were obtained from the base of the lungs through the floor of the pelvis utilizing 5 mm axial slices after administration of oral and nonionic intravenous contrast. C oronal and sagittal reconstructions were also obtained. Comparison: august 12, 2016. Findings: Chest: The visualized lung bases demonstrate a large left-sided pleural effusion and small right-si ded pleural effusion with adjacent atelectasis. Abdomen: The spleen, pancreas, kidneys, and adrenal glands are unremarkable. There is a stable low at tenuation lesion in the right lobe of the liver measuring 2.2 x 1.6 cm. Significant severeintrahepati c, pancreatic and extrahepatic biliary ductal dilatation is noted. The aorta is within normal limits. There is no evidence of abdominal lymphadenopathy There is a moderate amount of abdominal ascites. There is a focal low attenuation and solid lesion at th umbilicus in the abdominal wall measuring 3.1 x 5.1 cm. This is new. Pelvis: The bowel is unremarkable, with no obstructive or inflammatory changes. The urinary bladder i s within normal limits. The other pelvic structures appear grossly intact. There is no evidence of pe lvic lymphadenopathy or ascites. Bones: There are no suspicious osseous abnormalities seen There is moderate degenerative disc disease at L2/L3, L3/L4 and L5/S1, with disc osteophyte complexes. Focal sclerotic changes are seen in the left sacral alar wing. Impression: 1. Increasing bilateral pleural effusions and lower lobe atelectasis, greater on the left. 2. Increasing abdominal and pelvic ascites. 3. New low attenuation lesion in the midline of the anterior abdominal wall adjacent to the umbilicu s, with surrounding soft tissue. This was not seen on the prior study, and could represent a developi ng abscess. 4.. No evidence of bowel obstruction. 5. Stable sclerotic lesion in the left sacral alar wing.Metastatic disease cannot be excluded. Bone scan may be helpful for further evaluation. 6. Stable degenerative disc disease in the lumbar spine. 7. Stable biliary and pancreatic ductal dilatation.
[2016-08-16] MEDS: VITAMIN B COMPLEX/VIT C CAP PO SCH (21:59)
[2016-08-16] MEDS: MULTIVITAMINS/MINERALS THERAP 1 TAB PO SCH (21:59)
[2016-08-16 22:00] VITALS: BP 123/57
[2016-08-16] MEDS: SODIUM CHLORIDE 0.9% INJ 10 ML SYR IV PRN (22:15)
[2016-08-17 06:00] VITALS: BP 124/59
[2016-08-17] MEDS: SODIUM CHLORIDE 0.9% INJ 10 ML SYR IV PRN ×2 (06:05→19:47)
[2016-08-17] MEDS: LEVOTHYROXINE 0.05 MG TAB (50 MCG) PO SCH (06:05)
[2016-08-17 06:32] LABS: MEAN CORPUSCULAR HEMOGLOBIN 30.9 pg (27.0-33.0); MEAN CORPUSCULAR HGB CONC 32.8 g/dl (32.0-36.5); MEAN CORPUSCULAR VOLUME 94.1 fl (80.0-96.0); RED CELL DISTRIBUTION WIDTH 19.7 % (11.5-14.5); WHITE BLOOD COUNT 20.3 K/mm3 (4.0-10.0)
[2016-08-17 07:05] LABS: ALBUMIN 1.6 GM/DL (3.2-5.2); ALBUMIN/GLOBULIN RATIO 0.48 (1.00-1.93); BILIRUBIN,TOTAL 6.1 MG/DL (0.2-1.0); CALCIUM LEVEL 6.7 MG/DL (8.8-10.2); CREATININE FOR GFR 0.98 MG/DL (0.55-1.02); GLOMERULAR FILTRATION RATE 58.6 (>39); POTASSIUM SERUM 4.3 MEQ/L (3.5-5.1); TOTAL PROTEIN 4.9 GM/DL (6.4-8.2)
[2016-08-17] MEDS: MIRALAX *UNIT DOSE* 17GM PACKET PO SCH (09:00)
[2016-08-17] MEDS: PANTOPRAZOLE 40MG INJ (PROTONIX) (C9113) IV SCH (09:10)
[2016-08-17] MEDS: SENOKOT S TAB PO SCH (09:10)
[2016-08-17] MEDS: HYDROXYCHLOROQUINE 200 MG TAB PO SCH (09:10)
[2016-08-17 09:11] VITALS: BP 124/59
[2016-08-17] MEDS: METOPROLOL TART 12.5 MG PER 1/2 TAB PO SCH (09:11)
[2016-08-17] MEDS: AMIODARONE 100MG TABLET (PACERONE) PO SCH (09:11)
[2016-08-17] MEDS: SODIUM CHLORIDE 0.9% INJ 10 ML SYR IV SCH (09:12)
[2016-08-17] MEDS ORDERED: VANCOMYCIN HCL 1,000 MG, VIAL MATE ADAPTER 1 EACH in D5W 250 ML IV SCH (11:45)
[2016-08-17] MEDS ORDERED: NS 1,000 ML IV SCH (11:45)
[2016-08-17] MEDS ORDERED: PROMETHAZINE INJ 25 MG/ML VIAL (J2550) IM SCH (12:00)
[2016-08-17] MEDS: PROMETHAZINE INJ 25 MG/ML VIAL (J2550) IV SCH ×3 (12:32→23:55)
[2016-08-17] MEDS: ACETAMINOPHEN TAB 650MG DOSE (2X325MG) PO PRN (12:33)
[2016-08-17] MEDS ORDERED: MEROPENEM INJ 1 GM in D5W MINI-BAG PLUS 100 ML IV SCH (13:00)
[2016-08-17] MEDS ORDERED: VANCOMYCIN HCL 1,000 MG, VIAL MATE ADAPTER 1 EACH in D5W 250 ML IV ONE (13:00)
[2016-08-17 14:00] VITALS: BP 125/59
[2016-08-17] MEDS ORDERED: LIDOCAINE 1% MDV 20ML VIAL As Ordered ONE (14:09)
--- NOTE | 2016-08-17 14:39 | PHACANCOPD ---
PHARMACY VANCOMYCIN DOSING Pt Demographics Demographics Patient Age:76 , Weight:54.700 , Gender: female Adjusted Body Weight Date: 08/17/16, Adjusted Body Weight: Kg Events Past 24 Hours Events Past 24 Hours: YES: Change in CrCl (TRENDING UPWARD), Elevation in WBC, NO: Dialysis, Diuretic Therapy, Fever, Pending Diagnostics, Pending Procedures, Other Vancomycin Vancomycin indication: INFECTION Vancomycin Target Ranges: 10-20 mcg/ml Vancomycin Load Y/N: Yes Load Dose Date Time Vancomycin Load Dose: 1G Date: 08/17/16 Time:1300 Vancomycin Dose Date: 08/17/16. Current Vancomycin Dose: [1G IV Q24H @06] Intermittent Dosing?: No Labs Labs Vital Signs Label Value Date Time Patient Temperature 99.3 degrees F 08/16/16 1400 Temperature Source Temporal 08/16/16 1400 Patient Temperature 97.9 degrees F 08/17/16 0600 Temperature Source Temporal 08/17/16 0600 Item Value Date Time White Blood Count 12.7 K/mm3 H 08/15/16 0542 White Blood Count 12.2 K/mm3 H 08/16/16 0508 White Blood Count 20.3 K/mm3 H 08/17/16 0614 Creatinine 0.63 MG/DL 08/15/16 0542 Creatinine 0.73 MG/DL 08/16/16 0508 Creatinine 0.98 MG/DL 08/17/16 0614 Micro Microbiology 08/17/16 Blood Culture, Received Pending 08/17/16 Blood Culture, Received Pending 08/14/16 Acid Fast Stain, Received Pending 08/14/16 Mycobacterial Culture, Received Pending 08/14/16 Fungal Smear, Received Pending 08/14/16 Fungal Culture, Received Pending 08/14/16 Gram Stain - Final, Complete 08/14/16 Body Fluid Culture - Final, Complete 08/14/16 Anaerobic Culture - Final, Complete 08/15/16 Stool Occult Blood (RAINA) - Final, Complete Creatinine Clearance Date:08/17/16. Creatinine Clearance: [0.98]. Assessment and Plan Maintaining Current Dose?: Yes Reason for dose change: No Dose Change Pharmacist Note Pharmacist Note Date: 08/17/16. Pharmacist note: Pt is a 76 year old female who presented to ER with worsening muscle weakness, abdominal pain, and SOB. She has a past medical history of pancreatic cancer, post whipple, currently undergoing chemotherapy which has been changed multiple times due to adverse reactions. Pt was diagnosed with anemia and two large ascites. During stay large increase in WBC signifying infection. All blood cultures are currently pending. Pt has no previous hx of vanc use or mrsa at [facility]. We are starting patient on Vancomycin 1G IV loading dose @1300, followed by Vanco 1G IV q24h @0600. We will continue to monitor Scr which has been trending upwards as well as trough levels once appropriate. [facility] August 17, 2016 14:39
[2016-08-17 16:18] LABS: PERITONEAL FL COLOR BROWN (COLORLESS)
[2016-08-17 16:48] LABS: TOTAL PROTEIN, BODY FLUID 3.3 G/DL (NOT ESTABLISHED)
[2016-08-17 16:53] LABS: RBC PERITONEAL FLUID 36 (<10mm3 cells/uL)
[2016-08-17 16:54] LABS: BF DIFF IF INDICATED? YES (NO)
[2016-08-17 17:56] LABS: CC BF DIFF EXAM UNSPUN
[2016-08-17 17:59] LABS: TNC PERITONEAL FLUID 6608 cells/uL (0-20)
[2016-08-17] MEDS ORDERED: LORazepam 1 MG TAB PO PRN (18:00)
[2016-08-17] MEDS ORDERED: SCOPOLAMINE 1.5 MG TRANSDERMAL TD PRN (18:00)
--- NOTE | 2016-08-17 20:27 | IPNPDOC ---
Subjective Date Seen The patient was seen on 08/17/16. Subjective Chief Complaint/HPI The patient is a 76-year-old female admitted with a reason for visit of Ascites; Severe Anemia. Events since last encounter Has abd discomfort. Understands that the end of her life is near, feels tired, ready to be done, is worried that her children may not support her in her decision to pursue hospice Constitutional: Denies: Chills, Fever Pulmonary: Denies: Dyspnea, Cough Cardiovascular: Denies: Chest Pain, Palpitations Gastrointestinal: Reports: Nausea, Abdominal Pain, Denies: Vomiting Objective Physical Examination General Exam: Positive: Alert, Cooperative, No Acute Distress Eye Exam: Positive: Sclera icteric Chest Exam: Positive: Diminished, Negative: Rales, Rhonchi, Wheezing Heart Exam: Positive: Rate Normal, Negative: Normal S1, Normal S2 Abdomen Exam: Positive: Normal bowel sounds, Soft, Tenderness (tenderness at the superior aspect of midline surgical incision) Assessment /Plan Problems (1) Entero-enteric fistula Status: Acute Problem Text: Imaging of abdomen showed developing abscess- I consulted Dr. Gross for GI bleed/abscess. Pt went to IR, drain tube placed showig developing enterocutaneous fistula with old blood I discussed with Dr. Gross, Dr. Arreola, Dr. Capps (onc) Patient is not a surgical candidate, and has no remaining reasonable treatments left for her cancer I discussed this with patient at bedside, and with Shira (daughter) and Clark ( son) MOLST form completed with patient, patient wishes to pursue comfort care (2) Severe anemia Problem Text: s/p transfusion hgb trending downward- repeat transfusion today, described a melanotic stool from yesterday, start ppi, hold lovenox, mechanical dvt prophylaxis baseline HCT apparently around 7 Seems to be anemia of chronic disease and acute gi blood loss- given aranesp this stay (3) Pancreatic cancer Problem Specific Plan: Consult Specialist Problem Text: Has malignant ascites and pancreatitic cancer with metastatic disease I called Dr. Capps (08/13/16 and discussed with him 08/14/16, and 08/17/16) (4) Malignant ascites Status: Acute (5) Hypertension Status: Chronic (6) Hypokalemia Status: Acute Problem Text: repleted (7) Ascites Status: Acute (8) Pancreatitis Status: Acute Problem Text: elevated lipase at presentation- resolved Plan/VTE VTE Prophylaxis Ordered?: Yes VS, I&O, 24H, Fishbone Vital Signs/I&O Vital Signs Date Time Temp Pulse Resp B/P (MAP) Pulse Ox O2 Delivery O2 Flow Rate FiO2 08/17/16 14:00 97.6 86 18 125/59 (81) 99 Room Air I&O- Last 24 Hours up to 6 AM 08/17/16 06:00 Intake Total 660 ml Output Total 550 ml Balance 110 ml Laboratory Data 24H LABS Laboratory Tests 2 08/17/16 06:14: Anion Gap 10, Glomerular Filtration Rate 58.6, Blood Urea Nitrogen 26H, Creatinine 0.98, Sodium Level 133L, Potassium Level 4.3, Chloride Level 102, Carbon Dioxide Level 21, Calcium Level 6.7L, Aspartate Amino Transf (AST/SGOT) 39H, Alanine Aminotransferase (ALT/SGPT) 36, Alkaline Phosphatase 252H, Total Bilirubin 6.1H, Total Protein 4.9L, Albumin 1.6L, Albumin/Globulin Ratio 0.48L, Lipase 661H 08/17/16 15:52: Body Fluid Neutrophils , Body Fluid Lymphocytes , Body Fluid Eosinophils , Body Fluid Monocytes/Macrophages , Body Fluid Glucose Source PERITONEAL, Body Fluid Glucose 0, Body Fluid Protein Source PERITONEAL, Body Fluid Total Protein 3.3, Peritoneal Fluid Source PERITONEAL, Peritoneal Fluid Color BROWN, Peritoneal Fluid Appearance TURBID, Peritoneal Fluid RBC (Auto) 36, Peritoneal Fld Tot Nucleated Cells 6608H CBC/BMP Laboratory Tests 08/17/16 06:14 Red Blood Count 2.58 L, Mean Corpuscular Volume 94.1, Mean Corpuscular Hemoglobin 30.9, Mean Corpuscular Hemoglobin Concent 32.8, Red Cell Distribution Width 19.7 H, Calcium Level 6.7 L, Aspartate Amino Transf (AST/SGOT ) 39 H, Alanine Aminotransferase (ALT/SGPT) 36, Alkaline Phosphatase 252 H, Total Bilirubin 6.1 H, Total Protein 4.9 L, Albumin 1.6 L Microbiology Microbiology 08/17/16 Blood Culture, Received Pending 08/17/16 Blood Culture, Received Pending 08/17/16 Gram Stain, Received Pending 08/17/16 Body Fluid Culture, Received Pending 08/17/16 Anaerobic Culture, Received Pending 08/14/16 Acid Fast Stain, Received Pending 08/14/16 Mycobacterial Culture, Received Pending 08/14/16 Fungal Smear, Received Pending 08/14/16 Fungal Culture, Received Pending 08/14/16 Gram Stain - Final, Complete 08/14/16 Body Fluid Culture - Final, Complete 08/14/16 Anaerobic Culture - Final, Complete 08/15/16 Stool Occult Blood (RAINA) - Final, Complete ELIOT WOODSON MD August 17, 2016 20:27
[2016-08-17] MEDS: metroNIDAZOLE (FLAGYL) 500 MG TAB PO SCH (21:23)
[2016-08-18] MEDS: metroNIDAZOLE (FLAGYL) 500 MG TAB PO SCH ×3 (05:45→21:19)
[2016-08-18] MEDS: LEVOTHYROXINE 0.05 MG TAB (50 MCG) PO SCH (05:46)
[2016-08-18] MEDS: PROMETHAZINE INJ 25 MG/ML VIAL (J2550) IV SCH ×4 (05:46→23:54)
[2016-08-18] MEDS ORDERED: VANCOMYCIN HCL 1,000 MG, VIAL MATE ADAPTER 1 EACH in D5W 250 ML IV SCH (06:00)
--- NOTE | 2016-08-18 07:39 | CR ---
DATE OF CONSULTATION: 08/17/2016 REASON FOR CONSULTATION: Abdominal pain, anemia. HISTORY OF PRESENT ILLNESS: The patient is a 76-year-old female with metastatic pancreatic cancer who has malignant ascites, malignant pleural effusions, and at this time presented for abdominal pain/abdominal ascites that was reaccumulated very quickly. She essentially had a paracentesis last and it had reaccumulated over the weekend. She has had some anemia and some melanotic stools, and I am asked to see her for her anemia and recommendations for this as well as her recurrent ascites issues. Past medical history is significant for history of pancreatic cancer diagnosed in 2014, status post Whipple procedure, history of chemotherapy, hypertension, rheumatoid arthritis, symptomatic bradycardia status post pacemaker placement, hysterectomy, cholecystectomy, [id number] placement. PHYSICAL EXAMINATION: GENERAL: Reveals an elderly female who looks stated age. She is very cachectic appearing but very appropriate and answers questions well. HEENT: Unremarkable. NECK: Supple without adenopathy. LUNGS: Clear to auscultation although diminished at the bases bilaterally. HEART: Regular with a few irregular beats. ABDOMEN: Tensely distended, tympanitic. She has some tenderness in the epigastric area. LABORATORY DATA: Her white count jumped up to 20,000 today and she continues to be afebrile at this time. IMAGING: On her CT scan from yesterday, we see a reaccumulation of her pleural effusions, pelvic ascites and an abnormality in the anterior abdominal wall, possibly abscess. IMPRESSION AND PLAN: Patient has malignant ascites and this is essentially end-of-life treatment at this time. The patient has failed this ascites/paracentesis and thus, repeat paracentesis is not a reasonable option for her. I anticipate this is also contributing to some nausea that she is having and may also be related to malignancy invasive into bowel or stomach. She has had some melanotic stools and I would not be surprised if she has invasive lesion into the stomach. Also she may have an ulcer that has developed and aggressive treatment with proton pump inhibitor (PPI), Carafate is reasonable. However, truly I do feel that it is unlikely that she will survive very long with the current treatment and current process that is ongoing and I have discussed this with the patient at length. It is not unreasonable to percutaneously drain the area in the upper abdomen that is tender to palpation and, with the elevated white count, may suggest a underlying abscess. However, this may incite a significant ascites leak that may be uncontrolled and accelerate her demise. In addition, same is true with this abscess if this becomes intraperitoneal leakage, same possibility is evident for her and I do feel that comfort measures only is a reasonable approach. It seems as though her discomfort is significant enough that she would like to proceed with needle aspiration/drainage of this abscess and I feel that is a reasonable option for her. Please contact me if you would like me to discuss her issues further with you.
--- NOTE | 2016-08-18 08:53 | REP ---
ULTRASOUND GUIDED ABDOMINAL ABSCESS DRAIN: The procedure was performed under the direct supervision of Dr. Arreola. The risks and benefits of the procedure were explained to the patient and informed consent was obtained. The patient has a history of a new low attenuation lesion in the midline of the anterior abdominal wall adjacent to the umbilicus with surrounding soft tissue seen on a previous CT scan dated 08/16/2016. The midline abdominal lesion was localized using ultrasound guidance. The skin was prepped and draped in a sterile fashion. 1% Xylocaine was used as a local anesthetic. Using ultrasound guidance an #8-[place] skater APDL catheter was inserted using trocar technique. 90 mL of purple colored fluid was withdrawn and sent to the lab. The catheter was affixed to the skin and a sterile dressing was applied. The catheter was connected to a gravity drainage bag. The patient tolerated the procedure well and there were no immediate complications. Reviewed by SERVANDO Cueto 08/18/2016 07:31 PEdited and Signed by Reginald Arreola MD 08/19/2016 09:03 A
[2016-08-18] MEDS: SODIUM CHLORIDE 0.9% INJ 10 ML SYR IV SCH (10:14)
[2016-08-18] MEDS: ACETAMINOPHEN TAB 650MG DOSE (2X325MG) PO PRN (14:26)
[2016-08-18] MEDS: MORPHINE 2 MG/ML 1ML SYRINGE IV PRN ×2 (18:38→23:55)
[2016-08-18] MEDS: SODIUM CHLORIDE 0.9% INJ 10 ML SYR IV PRN (19:13)
[2016-08-19] MEDS ORDERED: CHLORASEPTIC SPRAY MT PRN (00:30)
[2016-08-19] MEDS: SODIUM CHLORIDE 0.9% INJ 10 ML SYR IV PRN ×3 (00:30→22:55)
[2016-08-19] MEDS: metroNIDAZOLE 500 MG in APPROPRIATE DILUENT 1 EA IV SCH ×3 (05:00→21:34)
[2016-08-19] MEDS: LEVOTHYROXINE 0.05 MG TAB (50 MCG) PO SCH (05:56)
[2016-08-19] MEDS: PROMETHAZINE INJ 25 MG/ML VIAL (J2550) IV SCH ×3 (05:57→17:44)
[2016-08-19] MEDS: SODIUM CHLORIDE 0.9% INJ 10 ML SYR IV SCH (10:05)
[2016-08-19] MEDS: AMIODARONE 100MG TABLET (PACERONE) PO SCH (10:05)
[2016-08-19] MEDS: MORPHINE 2 MG/ML 1ML SYRINGE IV PRN (13:05)
[2016-08-20] MEDS: PROMETHAZINE INJ 25 MG/ML VIAL (J2550) IV SCH ×5 (00:44→18:16)
[2016-08-20] MEDS: metroNIDAZOLE 500 MG in APPROPRIATE DILUENT 1 EA IV SCH ×3 (04:17→20:40)
[2016-08-20] MEDS: LEVOTHYROXINE 0.05 MG TAB (50 MCG) PO SCH (05:45)
[2016-08-20] MEDS: SODIUM CHLORIDE 0.9% INJ 10 ML SYR IV SCH (09:35)
[2016-08-20] MEDS: MORPHINE 2 MG/ML 1ML SYRINGE IV PRN (09:35)
[2016-08-21] MEDS: MORPHINE 2 MG/ML 1ML SYRINGE IV PRN ×3 (00:31→09:19)
[2016-08-21] MEDS: metroNIDAZOLE 500 MG in APPROPRIATE DILUENT 1 EA IV SCH ×3 (04:26→21:12)
[2016-08-21] MEDS: PROMETHAZINE INJ 25 MG/ML VIAL (J2550) IV SCH ×4 (05:55→18:17)
[2016-08-21] MEDS: ONDANSETRON 4 MG TAB (S0181) PO PRN (08:02)
[2016-08-21] MEDS: SODIUM CHLORIDE 0.9% INJ 10 ML SYR IV SCH (08:02)
[2016-08-22] MEDS: PROMETHAZINE INJ 25 MG/ML VIAL (J2550) IV SCH ×3 (00:01→11:43)
[2016-08-22] MEDS: MORPHINE 2 MG/ML 1ML SYRINGE IV PRN ×2 (00:05→08:33)
[2016-08-22] MEDS: metroNIDAZOLE 500 MG in APPROPRIATE DILUENT 1 EA IV SCH ×2 (05:08→11:43)
[2016-08-22] MEDS: SODIUM CHLORIDE 0.9% INJ 10 ML SYR IV SCH (08:33)
[2016-08-22] MEDS: MORPHINE 10MG/0.5ML ORAL CONCENTRATE SOLUTION U/D SL PRN ×3 (13:22→20:48)
[2016-08-23] MEDS: MORPHINE 10MG/0.5ML ORAL CONCENTRATE SOLUTION U/D SL PRN ×6 (04:08→17:59)
[2016-08-23] MEDS: SODIUM CHLORIDE 0.9% INJ 10 ML SYR IV SCH (10:16)
[2016-08-23] MEDS ORDERED: LORazepam 1 MG TAB SL PRN (16:45)
[2016-08-24] MEDS: MORPHINE 10MG/0.5ML ORAL CONCENTRATE SOLUTION U/D SL PRN (06:16)
[2016-08-24] MEDS: SODIUM CHLORIDE 0.9% INJ 10 ML SYR IV SCH (09:00)
--- NOTE | 2016-08-24 17:27 | DS.PDOC ---
Discharge Summary General Date of Admission August 12, 2016 at 20:02 Date of Discharge 08/24/16 - Primary Care Physician: VERONIKA GUERRERO DO Discharge Summary PROCEDURES PERFORMED DURING STAY: Paracentesis dISCHARGE DIAGNOSES: 1. Pancreatic cancer s/p whipple and chemo. 2. HTN 3. symptomatic bradycardia s/p PPM. 4. rheumatoid arthritis HOSPITAL COURSE: 76 year old female presents for several week history of fatigue , malaise, abdominal pain and shortness of breath. She was found to be severely anemic, and underwent transfusion of pRBC, with lasix for volume overload. Her oncologist was contacted with suggestions for comfort measures only given a grave prognosis with poor response to chemotherapy. Patient was subsequently made comfort measures only, with hospice consultation for placement. She received paracentesis for comfort. She ultimately while in hospital. DISCHARGE MEDICATIONS: Please see below. ALLERGIES: Please see below. PHYSICAL EXAMINATION ON DISCHARGE: Patient . LABORATORY DATA: Please see below. DISPOSITION: 20 . TIME SPENT ON DISCHARGE: Greater than 20 minutes. Vital Signs/I&Os Vital Signs Date Time Temp Pulse Resp B/P (MAP) Pulse Ox O2 Delivery O2 Flow Rate FiO2 08/24/16 08:30 Room Air 08/23/16 18:30 16 08/23/16 11:28 16 I&O- Last 24 Hours up to 6 AM 08/24/16 05:59 Intake Total 10 ml Output Total 0 ml Balance 10 ml Microbiology Microbiology 08/17/16 Blood Culture - Final, Complete Pseudomonas Aeruginosa 08/17/16 Blood Culture - Final, Complete Escherichia Coli 08/17/16 Gram Stain - Final, Complete 08/17/16 Body Fluid Culture - Final, Complete Escherichia Coli Enterococcus Faecalis 08/17/16 Anaerobic Culture - Final, Complete 08/14/16 Acid Fast Stain - Final, Resulted 08/14/16 Mycobacterial Culture, Resulted Pending 08/14/16 Fungal Smear - Final, Resulted 08/14/16 Fungal Culture, Resulted Pending 08/14/16 Gram Stain - Final, Complete 08/14/16 Body Fluid Culture - Final, Complete 08/14/16 Anaerobic Culture - Final, Complete 08/15/16 Stool Occult Blood (RIANA) - Final, Complete Discharge Medications Scheduled (Align) 4 Mg Cap, 4 MG PO DAILY, (Reported) (Calcium Magnesium & Zinc 334-134-5 mg) 1 Tab Tab, 1 TAB PO QHS, (Reported) (Restasis) 0.05 % Emu, 1 DOSE OU BID, (Reported) Acetaminophen (Tylenol Extra Strength) 500 Mg Tab, 500 MG PO QHS, (Reported) Amiodarone HCl (Amiodarone HCl) 100 Mg Tab, 50 MG PO 3XW, (Reported) WED, WED, WED Ascorbic Acid (Vitamin C) 500 Mg Tab, 500 MG PO QHS, (Reported) B1/B2/B3/B5/B6 (Vitamin B Complex) 1 Tab Tab, 1 TAB PO QHS, (Reported) Docusate Sodium (Colace) 100 Mg Cap, 100 MG PO DAILY, (Reported) Ergocalciferol (Vitamin D) 50,000 Unit Cap, 50,000 UNIT PO QWEEK, (Reported) TUESDAYS HS Ferrous Sulfate (Iron) 28 Mg Tab, 28 MG PO DAILY, (Reported) Hydroxychloroquine Sulfate (Hydroxychloroquine Sulfat) 200 Mg Tab, 200 MG PO BID , (Reported) Levothyroxine Sodium (Levoxyl) 50 Mcg Tab, 50 MCG PO DAILY, (Reported) Metoprolol Tartrate (Metoprolol Tartrate) 12.5 Mg Halftab, 12.5 MG PO BID, ( Reported) Multivitamins *[facility] STOCKED* (Thera M Plus *[facility] STOCKED*) 1 Tab Tab, 1 TAB PO QHS , (Reported) Rivaroxaban (Xarelto) 15 Mg Tab, 15 MG PO QHS, (Reported) Vegetable Enzyme (Lutein) 6 Mg Tab, 6 MG PO QHS, (Reported) Scheduled PRN Artificial Tears (Artificial Tears) 1.4 % Stephany, 1 DROP OU PRN PRN for DRY EYES, ( Reported) Ondansetron HCl (Zofran) 8 Mg Tab, 8 MG PO TID PRN for NAUSEA OR VOMITING, ( Reported) Allergies Coded Allergies: Penicillins (Verified Allergy, Severe, TONGUE SWELLING, 08/22/16) Codeine (Verified Adverse Reaction, Mild, GI UPSET, 08/22/16) OMAR JEAN-BAPTISTE MD August 24, 2016 17:27
== END 2016-08-24 12:33 | disposition expired | DRG 435 ==
LOC: M ED 17:43 → M ED INP 20:02 → M PCU 21:49 → M MSPAV 08-13 14:32
PROVIDERS: ADMIT Internal Medicine; ATTEND Internal Medicine
PROC: 30233N1 Transfusion of Nonautologous Red Blood Cells into Peripheral Vein, Percutaneous Approach (ICD-10-PCS; 2016-08-12)
PROC: 0W9G3ZX Drainage of Peritoneal Cavity, Percutaneous Approach, Diagnostic (ICD-10-PCS; 2016-08-14)
PROC: 0W9F30Z Drainage of Abdominal Wall with Drainage Device, Percutaneous Approach (ICD-10-PCS; principal; 2016-08-17)
DX: C25.9 Malignant neoplasm of pancreas, unspecified (principal); K85.90 Acute pancreatitis without necrosis or infection, unspecified; R18.0 Malignant ascites; J91.0 Malignant pleural effusion; I50.22 Chronic systolic (congestive) heart failure; K92.1 Melena; K63.2 Fistula of intestine; L02.211 Cutaneous abscess of abdominal wall; C78.7 Secondary malignant neoplasm of liver and intrahepatic bile duct; C79.51 Secondary malignant neoplasm of bone; K92.2 Gastrointestinal hemorrhage, unspecified; B95.2 Enterococcus as the cause of diseases classified elsewhere; D63.0 Anemia in neoplastic disease; B96.20 Unspecified Escherichia coli [E. coli] as the cause of diseases classified elsewhere; B96.5 Pseudomonas (aeruginosa) (mallei) (pseudomallei) as the cause of diseases classified elsewhere; I11.0 Hypertensive heart disease with heart failure; M06.9 Rheumatoid arthritis, unspecified; Z79.899 Other long term (current) drug therapy; Z79.01 Long term (current) use of anticoagulants; Z88.0 Allergy status to penicillin; Z88.5 Allergy status to narcotic agent; Z92.21 Personal history of antineoplastic chemotherapy; Z95.0 Presence of cardiac pacemaker; Z90.710 Acquired absence of both cervix and uterus; Z90.49 Acquired absence of other specified parts of digestive tract; Z95.828 Presence of other vascular implants and grafts